=== PATIENT | male | born 1950 | race Two or more races ===

== ENCOUNTER 2023-04-24 14:23 | Inpatient (IN) | payer OTHER ==
[~2023-04-24] VITALS: Ht 152.4 cm; Wt 106.1 kg
[2023-04-24 16:01] LABS: ALBUMIN 2.2 gm/dL (3.4-5.0); CREATININE SERUM 2.11 mg/dL (0.70-1.30); GFR 31.03; GLOBULINA 4.6 G/DL (2.4-3.5); POTASSIUM 5.27 mEq/L (3.5-5.1); TOTAL PROTEIN 6.8 gm/dL (6.4-8.2)
[2023-04-24 16:26] LABS: BILIRUBIN TOTAL 17.48 mg/dL (0.3-1.2)
[2023-04-24 17:51] LABS: HEMATOCRIT 42.4 % (39.0-48.0); HEMOGLOBIN 13.9 g/dL (13-16.00); MEAN CELL VOLUME 84.3 fL (80.0-100.00); MEAN CORPUSCULAR HEMOGLOBIN 27.7 pg (27.00-32.0); MEAN CORPUSCULAR HGB CONC 32.8 g/dl (32.0-36.0); PLATELET COUNT 160 K/uL (150-450); RED BLOOD COUNT 5.02 M/uL (4.00-6.00); RED CELL DISTRIBUTION WIDTH 21.8 % (11.5-14.5)
[2023-04-24 18:00] LABS: INR 2.09; PARTIAL THROMBOPLASTIN TIME 32.8 SECONDS (22.0-34.0)
[2023-04-24 18:11] LABS: CALCIUM 9.8 mg/dL (8.5-10.1); CREATININE SERUM 2.08 mg/dL (0.70-1.30); GFR 31.55; GLOBULINA 3.9 G/DL (2.4-3.5); POTASSIUM 5.02 mEq/L (3.5-5.1); TOTAL PROTEIN 5.9 gm/dL (6.4-8.2)
[2023-04-24 18:38] LABS: PROTHROMBIN TIME 20.8 SECONDS (9.0-11.5)
[2023-04-24 19:06] LABS: BILIRUBIN TOTAL 16.18 mg/dL (0.3-1.2)
[2023-04-24 22:10] LABS: URINE APPEARANCE Turbid; URINE BILIRRUBIN Large (NEGATIVE); URINE BLOOD Negative; URINE COLOR Dark Yellow; URINE GLUCOSE Negative (NEGATIVE); URINE LEUKOCYTE Small; URINE NITRATE Positive; URINE PROTEIN 30 (NEGATIVE)
[2023-04-24 22:14] LABS: URINE BACTERIA 195.2 uL (0.0-1933); URINE EPITHELIAL CELLS 96.7 uL (0.0-38.8); URINE RBC 52.8 uL (0.0-20.8); URINE WBC 23.4 uL (0.0-23.2)
[2023-04-25 06:58] LABS: HEMATOCRIT 37.1 % (39.0-48.0); HEMOGLOBIN 12.6 g/dL (13-16.00); MEAN CELL VOLUME 82.1 fL (80.0-100.00); MEAN CORPUSCULAR HEMOGLOBIN 27.9 pg (27.00-32.0); PLATELET COUNT 161 K/uL (150-450); RED BLOOD COUNT 4.52 M/uL (4.00-6.00); RED CELL DISTRIBUTION WIDTH 21.5 % (11.5-14.5)
[2023-04-25 07:49] LABS: ALBUMIN 1.8 gm/dL (3.4-5.0); CALCIUM 8.8 mg/dL (8.5-10.1); CREATININE SERUM 1.62 mg/dL (0.70-1.30); GFR 42.09; GLOBULINA 3.5 G/DL (2.4-3.5); POTASSIUM 5.53 mEq/L (3.5-5.1); TOTAL PROTEIN 5.3 gm/dL (6.4-8.2)
[2023-04-25 07:59] LABS: BILIRUBIN TOTAL 14.5 mg/dL (0.3-1.2)
[2023-04-25] MEDS ORDERED: ATORVASTATIN CA20 MG (10:44)
[2023-04-25] MEDS ORDERED: PIOGLITAZONE HC30 MG (10:44)
[2023-04-25] MEDS ORDERED: FUROSEMIDE20 MG (10:44)
[2023-04-25] MEDS ORDERED: ISOSORBIDE DINI30 MG (10:44)
[2023-04-25] MEDS ORDERED: LOSARTAN POTASS25 MG (10:44)
[2023-04-25] MEDS ORDERED: VITAMIN C500 M1 (10:45)
[2023-04-25] MEDS ORDERED: METOPROLOL SUC100 MG (10:45)
[2023-04-25] MEDS ORDERED: IRON325 MG (10:45)
[2023-04-25] MEDS ORDERED: SYNJARDY XR 121 EACH (10:45)
[2023-04-25] MEDS ORDERED: SYNTHROID100 MCG (10:45)
[2023-04-26 07:05] LABS: HEMATOCRIT 39.8 % (39.0-48.0); HEMOGLOBIN 13.3 g/dL (13-16.00); MEAN CORPUSCULAR HEMOGLOBIN 28.2 pg (27.00-32.0); MEAN CORPUSCULAR HGB CONC 33.5 g/dl (32.0-36.0); PLATELET COUNT 176 K/uL (150-450); RED BLOOD COUNT 4.73 M/uL (4.00-6.00); RED CELL DISTRIBUTION WIDTH 21.9 % (11.5-14.5)
[2023-04-26 17:26] LABS: INR 1.48
[2023-04-26 17:28] LABS: PROTHROMBIN TIME 15.1 SECONDS (9.0-11.5)
[2023-04-26 18:04] LABS: ALBUMIN 1.7 gm/dL (3.4-5.0); CALCIUM 8.9 mg/dL (8.5-10.1); CREATININE SERUM 3.38 mg/dL (0.70-1.30); GFR 18.01; GLOBULINA 3.9 G/DL (2.4-3.5); POTASSIUM 5.4 mEq/L (3.5-5.1); TOTAL PROTEIN 5.6 gm/dL (6.4-8.2)
[2023-04-26 18:07] LABS: BILIRUBIN TOTAL 15.95 mg/dL (0.3-1.2)
[2023-04-28 14:08] LABS: ABG PH 7.374 (7.35-7.45); ABG PO2 110.5 mmHg (80-100); BASE EXCESS -7.1 mmol/l; BICARBONATE 16.6 mmol/l (23-25); Tco2 17.4 mmol/l; o2 50 %
[2023-04-28 14:09] LABS: allen test SATISFACTORY; puncture site RADIAL RIGHT
[2023-04-29 07:22] LABS: ALBUMIN 2.6 gm/dL (3.4-5.0); CALCIUM 7.9 mg/dL (8.5-10.1); POTASSIUM 5.69 mEq/L (3.5-5.1); TOTAL PROTEIN 5.6 gm/dL (6.4-8.2)
[2023-04-29 07:23] LABS: HEMATOCRIT 37.1 % (39.0-48.0); HEMOGLOBIN 12.6 g/dL (13-16.00); MEAN CELL VOLUME 82.8 fL (80.0-100.00); MEAN CORPUSCULAR HEMOGLOBIN 28.1 pg (27.00-32.0); PLATELET COUNT 197 K/uL (150-450); RED BLOOD COUNT 4.48 M/uL (4.00-6.00); RED CELL DISTRIBUTION WIDTH 21.5 % (11.5-14.5)
[2023-04-29 09:00] LABS: BILIRUBIN TOTAL 20.23 mg/dL (0.3-1.2); GFR 14.83
[2023-05-01 07:28] LABS: HEMATOCRIT 36.4 % (39.0-48.0); HEMOGLOBIN 12.5 g/dL (13-16.00); MEAN CORPUSCULAR HEMOGLOBIN 27.8 pg (27.00-32.0); MEAN CORPUSCULAR HGB CONC 34.3 g/dl (32.0-36.0); RED CELL DISTRIBUTION WIDTH 21.7 % (11.5-14.5)
[2023-05-01 07:29] LABS: PLATELET COUNT 102 K/uL (150-450)
[2023-05-01 07:36] LABS: CALCIUM 8.7 mg/dL (8.5-10.1); CREATININE SERUM 2.44 mg/dL (0.70-1.30); GFR 26.24; GLOBULINA 2.2 G/DL (2.4-3.5); POTASSIUM 4.15 mEq/L (3.5-5.1); TOTAL PROTEIN 5.2 gm/dL (6.4-8.2)
[2023-05-01 08:26] LABS: BILIRUBIN TOTAL 22.14 mg/dL (0.3-1.2)
[2023-05-03 06:33] LABS: MAGNESIUM 1.7 mg/dL (1.8-2.4); PHOSPHOROUS 3.4 mg/dL (2.5-4.9); POTASSIUM 4.09 mEq/L (3.5-5.1)
== END 2023-05-08 22:00 | disposition expired | DRG 682 ==
LOC: MEDJ 14:23
PROVIDERS: ADMIT Internal Medicine Hematology & Oncology; ATTEND Internal Medicine Hematology & Oncology
PROC: 4A12X4Z Monitoring of Cardiac Electrical Activity, External Approach (ICD-10-PCS; 2023-04-26)
PROC: B24BYZZ Ultrasonography of Heart with Aorta using Other Contrast (ICD-10-PCS; 2023-04-26)
PROC: 3E043XZ Introduction of Vasopressor into Central Vein, Percutaneous Approach (ICD-10-PCS; principal; 2023-04-27)
PROC: 02HV33Z Insertion of Infusion Device into Superior Vena Cava, Percutaneous Approach (ICD-10-PCS; 2023-04-28)
DX: N17.9 Acute kidney failure, unspecified (principal); K72.91 Hepatic failure, unspecified with coma; K76.7 Hepatorenal syndrome; T81.19XA Other postprocedural shock, initial encounter; N39.0 Urinary tract infection, site not specified; C22.8 Malignant neoplasm of liver, primary, unspecified as to type; C78.00 Secondary malignant neoplasm of unspecified lung; E87.20 Acidosis, unspecified; I50.9 Heart failure, unspecified; R63.0 Anorexia; I11.0 Hypertensive heart disease with heart failure; N28.9 Disorder of kidney and ureter, unspecified; Z68.35 Body mass index [BMI] 35.0-35.9, adult; E11.65 Type 2 diabetes mellitus with hyperglycemia; Z79.4 Long term (current) use of insulin; E87.5 Hyperkalemia; R34 Anuria and oliguria; K72.90 Hepatic failure, unspecified without coma; N04.9 Nephrotic syndrome with unspecified morphologic changes
CPT/HCPCS: 240